=== PATIENT | female | born 1980 | race Caucasian/White ===

== ENCOUNTER 2021-11-21 08:22 | Emergency (ER) | payer OTHER ==
[2021-11-21 11:49] LABS: BUN/CREAT RATIO (CALC) 10.1 RATIO; CREATININE 0.89 mg/dL (0.51-0.95)
[2021-11-21 11:51] LABS: BASOPHIL 0.1 % (0-2); EOSINOPHIL 0 % (0-5); HCT 36.9 % (37.0-47.0); HGB 12.1 g/dl (12.5-16.0); LYMPHOCYTE 13.6 % (15-48); MCH 32.9 pg (25.0-31.0); MCHC 32.8 g/dL (32.0-36.0); MCV 100.3 fL (78.0-100.0); MONOCYTE 3.5 % (0-12); MPV 9.9 fL (6.0-9.5); NEUTROPHIL 82.3 % (41-80); NRBC 0; PLT 351 K/uL (150-400); RBC 3.68 M/uL (4.20-5.40); RDW 14.8 % (11.5-14.0); WBC 9.3 K/uL (4.0-10.5)
[2021-11-21] MEDS ORDERED: FLEXERIL5 MG PO (13:34)
[2021-11-21] MEDS ORDERED: ULTRAM50 MG PO (13:34)
== END 2021-11-21 13:42 | disposition home or self-care (01) ==
LOC: FER 08:22
PROVIDERS: Emergency Medicine
DX: M94.0 Chondrocostal junction syndrome [Tietze] (principal); R07.81 Pleurodynia; I10 Essential (primary) hypertension; F17.290 Nicotine dependence, other tobacco product, uncomplicated; Z88.5 Allergy status to narcotic agent; Z28.310 Unvaccinated for COVID-19
CPT/HCPCS: 36415; 71101; 71275; 72128; 80048; 85025; J1100; J1885; Q9967

== ENCOUNTER 2021-12-31 10:30 | Emergency (ER) | payer OTHER ==
[~2021-12-31 10:30] MED LIST: FLEXERIL5 MG PO; ULTRAM50 MG PO
[2021-12-31] MEDS ORDERED: MEDROL 4MG DOSEP4 MG PO (13:27)
[2021-12-31] MEDS ORDERED: NAPROXEN500 MG PO (13:27)
[2021-12-31] MEDS ORDERED: BACLOFEN 10MG T10 MG PO (13:27)
== END 2021-12-31 14:06 | disposition home or self-care (01) ==
LOC: FER 10:30
DX: M54.32 Sciatica, left side (principal); I50.9 Heart failure, unspecified; Z88.5 Allergy status to narcotic agent; Z87.891 Personal history of nicotine dependence
CPT/HCPCS: 72100; 96372; J1100; J1885